=== PATIENT | female | born 1965 | race American Indian/Alaskan Native ===

== ENCOUNTER 2020-07-20 08:39 | Outpatient (CLI) | payer OTHER ==
--- NOTE | 2020-07-20 09:38 | XRay Report ---
CERVICAL SPINE 3 VIEWS INDICATION: Neck pain. COMPARISON: None. IMPRESSION: Normal alignment. Minimal degenerative disc disease is identified at C5-6. The remainin g levels are within normal limits. No acute osseous or soft tissue abnormality. LUMBOSACRAL SPINE 3 VIEWS INDICATION: neck / BACK PAIN. COMPARISON: None. IMPRESSION: Normal alignment. Minimal degenerative disc disease is identified at L2-3, L3-4 and L4- 5. The remaining levels are within normal limits. No acute osseous or soft tissue abnormality. Ther e are multiple peripherally calcified fibroids in the pelvis with the largest measuring 3.3 cm in sreedhar meter. Signer Name: Victorino Cullen Jr, MD Signed: 07/20/2020 9:34 AM Workstation Name: [id number]
== END 2020-07-20 08:40 | disposition home or self-care (01) ==
LOC: XRAY 08:39
PROVIDERS: ATTEND Internal Medicine
DX: M47.812 Spondylosis without myelopathy or radiculopathy, cervical region (principal); M47.817 Spondylosis without myelopathy or radiculopathy, lumbosacral region; M25.859 Other specified joint disorders, unspecified hip
CPT/HCPCS: 72040; 72100